=== PATIENT | female | born 1980 | race Two or more races ===

== ENCOUNTER 2017-01-05 23:50 | Emergency (ER) | payer OTHER ==
[2017-01-05 21:20] LABS: BASOPHILS 0.6 %; BASOPHILS ABSOLUTE 0.04 10/3/uL (0.0-0.16); EOSINOPHILS 1.7 %; EOSINOPHILS ABSOLUTE 0.11 10/3/uL (0.0-0.53); HEMATOCRIT 44.8 % (36.0-48.0); HEMOGLOBIN 14.6 g/dL (12.0-16.0); LYMPHOCYTES 48.6 %; LYMPHOCYTES ABSOLUTE 3.09 10/3/uL (0.67-4.30); MEAN CORPUS HGB CONC 32.6 g/dL (32.0-36.0); MEAN PLATELET VOLUME 10.9 fL (9.2-13.0); MONOCYTES 9.1 %; MONOCYTES ABSOLUTE 0.58 10/3/uL (0.21-1.20); NEUTROPHILS ABSOLUTE 2.54 10/3/uL (2.02-8.40); PLATELET COUNT 290 10/3/uL (150-400); RBC DISTRIBUTION WIDTH 13.9 % (12.0-16.0); RED CELL COUNT 4.87 10/6/uL (4.0-5.6)
[2017-01-05 21:22] LABS: ER CBC TAT 0 Hrs 13 Mins; MANUAL DIFF NO %; WHITE BLOOD CELLS 6.4 10/3/uL (4.5-10.5)
[2017-01-05 21:35] LABS: A/G RATIO 0.9 (0.7-1.9); ALBUMIN 3.9 G/DL (3.5-5.0); ALKALINE PHOSPHATASE 60 U/L (45-117); BUN (BLOOD UREA NITROGEN) 15 MG/DL (6-23); CALCIUM, SERUM 9.1 MG/DL (8.5-10.4); CHLORIDE, SERUM 103 MMOL/L (96-112); CO2 (CARBON DIOXIDE) 28 MMOL/L (24-34); CREATININE 0.66 MG/DL (0.55-1.02); GFR AFRICAN AMERICAN 132 ML/MIN (>=60); GFR NON AFRICAN AMERICAN 114 ML/MIN (>=60); GLOBULIN 4.2 G/DL (2.5-4.1); GLUCOSE, SERUM 134 MG/DL (60-99); POTASSIUM, SERUM 3.4 MMOL/L (3.5-5.3); SGOT(AST) 21 U/L (5-40); SGPT(ALT) 30 U/L (5-65); SODIUM, SERUM 140 MMOL/L (135-148); TOTAL BILIRUBIN 0.5 MG/DL (0-1.2); TOTAL PROTEIN 8.1 G/DL (6.0-8.5)
[~2017-01-05 23:50] MED LIST: ACET500CAP PO; COZ25 PO; GLUCOPHAGE1000 MG PO; HUMALOG SC; LEXAPRO10 PO; NASACORTAQ NAS; NUVARING1 EACH V; SPIRO50 PO; SUCR PO; TOPAMAX25 PO; TORATAB PO; TRESIBA FL100 UNIT/1 SQ; ULTRAM50 PO; XIGDUO10/1000 PO; ZOFRAN4 PO
== END 2017-01-06 02:08 | disposition home or self-care (01) ==
LOC: ER 23:50
PROVIDERS: Nurse Practitioner
DX: E11.65 Type 2 diabetes mellitus with hyperglycemia (principal); L08.9 Local infection of the skin and subcutaneous tissue, unspecified; I10 Essential (primary) hypertension; F41.9 Anxiety disorder, unspecified; F32.9 Major depressive disorder, single episode, unspecified; Z88.5 Allergy status to narcotic agent; Z88.6 Allergy status to analgesic agent; Z79.4 Long term (current) use of insulin; Z79.899 Other long term (current) drug therapy
CPT/HCPCS: 80053; 85025; 87070; 87077; 87186; 87205; 99284